=== PATIENT | male | born 1980 ===

== ENCOUNTER 2023-01-12 09:43 | Outpatient (CLI) | payer OTHER ==
[~2023-01-12 09:43] MED LIST: DICLOFENAC POTA50 MG PO; MEDROLPACK PO; METHOCARBAMOL500 MG PO; NEURONTIN300 MG PO
== END 2023-01-12 09:55 | disposition home or self-care (01) ==
LOC: RAD 09:43
PROVIDERS: ATTEND Psychiatry & Neurology Psychiatry
DX: M50.20 Other cervical disc displacement, unspecified cervical region (principal)